=== PATIENT | male | born 1995 | race Caucasian/White ===

== ENCOUNTER 2018-12-10 11:31 | Emergency (ER) | payer MEDICAID | END 2018-12-10 14:00 | disposition left against medical advice (07) | LOC: ER 13:44 | DX: S69.92XA Unspecified injury of left wrist, hand and finger(s), initial encounter (principal); Z53.21 Procedure and treatment not carried out due to patient leaving prior to being seen by health care provider; X58.XXXA Exposure to other specified factors, initial encounter; Y93.89 Activity, other specified; Y92.89 Other specified places as the place of occurrence of the external cause; Y99.8 Other external cause status ==

== ENCOUNTER 2018-12-10 14:39 | Emergency (ER) | payer MEDICAID | END 2018-12-10 16:31 | disposition left against medical advice (07) | LOC: ER 14:39 | DX: S69.90XA Unspecified injury of unspecified wrist, hand and finger(s), initial encounter (principal); Z53.21 Procedure and treatment not carried out due to patient leaving prior to being seen by health care provider; X58.XXXA Exposure to other specified factors, initial encounter; Y93.89 Activity, other specified; Y92.89 Other specified places as the place of occurrence of the external cause; Y99.8 Other external cause status ==

== ENCOUNTER 2018-12-11 01:06 | Emergency (ER) | payer MEDICAID ==
[~2018-12-11] VITALS: Ht 170.2 cm; Wt 78.5 kg
[2018-12-11] MEDS ORDERED: IBUPROFEN 600MG TABLET PO STA (02:49)
[2018-12-11] MEDS ORDERED: BACITRACIN ZINC OINT UDPKT TOP ONE (05:00)
[2018-12-11] MEDS ORDERED: AMOXICILLIN/POTASSIUM CLAVULANATE 875/125MG TAB PO SCH (05:00)
[2018-12-11 05:57] VITALS: BP 137/87
== END 2018-12-11 06:00 | disposition home or self-care (01) ==
LOC: ER 01:06
DX: F12.10 Cannabis abuse, uncomplicated (principal); S62.394A Other fracture of fourth metacarpal bone, right hand, initial encounter for closed fracture; S62.396A Other fracture of fifth metacarpal bone, right hand, initial encounter for closed fracture; S60.222A Contusion of left hand, initial encounter; S61.451A Open bite of right hand, initial encounter; Y04.0XXA Assault by unarmed brawl or fight, initial encounter; Y04.1XXA Assault by human bite, initial encounter; Y93.89 Activity, other specified; Y92.89 Other specified places as the place of occurrence of the external cause
CPT/HCPCS: 29125; 73130; 99283

== ENCOUNTER 2019-03-04 16:19 | Emergency (ER) | payer MEDICAID ==
[~2019-03-04] VITALS: Ht 165.1 cm; Wt 84.0 kg
[2019-03-04 16:22] VITALS: BP 129/72
== END 2019-03-04 19:50 | disposition left against medical advice (07) ==
LOC: ER 16:19
DX: M79.89 Other specified soft tissue disorders (principal); Z53.21 Procedure and treatment not carried out due to patient leaving prior to being seen by health care provider

== ENCOUNTER 2021-06-30 02:09 | Emergency (ER) | payer MEDICAID ==
[~2021-06-30] VITALS: Ht 170.2 cm; Wt 70.0 kg
[2021-06-30 02:17] VITALS: BP 130/85
[2021-06-30] MEDS ORDERED: CLOT15CR27 TP (03:47)
== END 2021-06-30 03:53 ==
LOC: ER 02:09
DX: S63.501A Unspecified sprain of right wrist, initial encounter (principal); B35.3 Tinea pedis; F12.10 Cannabis abuse, uncomplicated; X58.XXXA Exposure to other specified factors, initial encounter; Y93.89 Activity, other specified; Y92.89 Other specified places as the place of occurrence of the external cause; Y99.8 Other external cause status
CPT/HCPCS: 73110; 99283

== ENCOUNTER 2022-01-14 20:22 | Emergency (ER) | payer MEDICAID ==
[~2022-01-14] VITALS: Ht 165.1 cm; Wt 78.4 kg
[~2022-01-14 20:22] MED LIST: CLOT15CR27 TP
[2022-01-14 21:03] VITALS: BP 104/60
== END 2022-01-14 23:30 | disposition left against medical advice (07) ==
LOC: ER 20:22
DX: Z53.21 Procedure and treatment not carried out due to patient leaving prior to being seen by health care provider (principal); Z86.19 Personal history of other infectious and parasitic diseases

== ENCOUNTER 2022-01-17 21:28 | Emergency (ER) | payer MEDICAID ==
[~2022-01-17] VITALS: Ht 182.9 cm; Wt 75.0 kg
[2022-01-17 22:20] LABS: BASOPHILS % 0.5 % (0.0-2.0); EOSINOPHILS % 0.6 % (0.0-5.0); HEMATOCRIT. 39.3 % (42.0-52.0); HEMOGLOBIN. 13.6 g/dL (14.0-18.0); LYMPHOCYTES % 40.6 % (20.0-50.0); MEAN CORPUSCULAR HEMOGLOBIN 31.8 pg (28.0-32.0); MEAN CORPUSCULAR VOLUME 91.8 fL (80.0-94.0); MEAN PLATELET VOLUME 6.6 fl (7.4-10.4); NEUTROPHILS % 50.3 % (40.0-76.0); PLATELET 271 x1000/uL (130-400); RED BLOOD CELL COUNT 4.28 mill/uL (4.7-6.1); RED CELL DISTRIBUTION WIDTH 13.9 % (11.6-14.6)
[2022-01-17 22:21] LABS: CHLORIDE 103 mEq/L (98-107)
[2022-01-17 22:26] VITALS: BP 139/70
[2022-01-17 22:30] LABS: ETHANOL BLOOD < 10 mg/dL
[2022-01-17] MEDS ORDERED: SODIUM CHLORIDE 0.9% 1,000 ML IV NR (23:15)
[2022-01-17 23:19] LABS: CREATINE KINASE 136 IU/L (39-308)
[2022-01-18 01:17] LABS: *AMPHETAMINES SCREEN URINE NEGATIVE (NEGATIVE); *BARBITURATES SCREEN URINE NEGATIVE (NEGATIVE); *BENZODIAZEPINES SCREEN URINE NEGATIVE (NEGATIVE); *COCAINE SCREEN URINE NEGATIVE (NEGATIVE); CANNABINOID URINE SCREEN PRESUMTIVE POSITIVE (NEGATIVE); METHADONE URINE SCREEN NEGATIVE (NEGATIVE); OPIATES URINE SCREEN NEGATIVE (NEGATIVE); PHENCYCLIDINE URINE SCREEN NEGATIVE (NEGATIVE)
[2022-01-18] MEDS ORDERED: NALO4SPR BOTHNSTRLS (04:29)
== END 2022-01-18 05:01 | disposition home or self-care (01) ==
LOC: ER 21:28
DX: T40.711A Poisoning by cannabis, accidental (unintentional), initial encounter (principal); F11.10 Opioid abuse, uncomplicated; Y92.018 Other place in single-family (private) house as the place of occurrence of the external cause
CPT/HCPCS: 36415; 80053; 80305; 80307; 80320; 80329; 82550; 85025; 93005; 99284; Z7610; G0480

== ENCOUNTER 2022-02-02 23:43 | Emergency (ER) | payer MEDICAID ==
[~2022-02-02] VITALS: Ht 170.2 cm; Wt 78.1 kg
[~2022-02-02 23:43] MED LIST changes: +NALO4SPR BOTHNSTRLS
[2022-02-02 23:59] VITALS: BP 115/53
[2022-02-03] MEDS ORDERED: ONDANSETRON HCL 4MG/2ML INJ IM STA (01:52)
[2022-02-03] MEDS ORDERED: KETOROLAC 60MG/2ML VIAL IM STA (01:52)
[2022-02-03 02:31] LABS: CHLORIDE 100 mEq/L (98-107)
[2022-02-03 02:41] LABS: BASOPHILS % 0.6 % (0.0-2.0); EOSINOPHILS % 0.7 % (0.0-5.0); HEMATOCRIT. 37.8 % (42.0-52.0); HEMOGLOBIN. 12.8 g/dL (14.0-18.0); MEAN CORPUSCULAR HEMOGLOBIN 30.6 pg (28.0-32.0); MEAN CORPUSCULAR VOLUME 90.6 fL (80.0-94.0); MEAN PLATELET VOLUME 6.4 fl (7.4-10.4); MONOCYTES % 9.9 % (2.0-8.0); NEUTROPHILS % 51.8 % (40.0-76.0); PLATELET 391 x1000/uL (130-400); RED BLOOD CELL COUNT 4.17 mill/uL (4.7-6.1); RED CELL DISTRIBUTION WIDTH 13.7 % (11.6-14.6)
[2022-02-03 03:34] LABS: CLARITY URINE CLEAR (CLEAR); COLOR URINE DARK YELLOW (YELLOW); KETONES URINE NEGATIVE (NEGATIVE); LEUKOCYTE ESTERASE URINE NEGATIVE (NEGATIVE); NITRITE URINE NEGATIVE (NEGATIVE); OCCULT BLOOD URINE NEGATIVE (NEGATIVE); PH URINE 5.5 (4.5-8.0); PROTEIN URINE 2+ (NEGATIVE); SPECIFIC GRAVITY URINE 1.039 (1.005-1.030)
[2022-02-03] MEDS ORDERED: NAPR-681 PO (03:48)
[2022-02-03] MEDS ORDERED: ONDA4TAB50 PO (03:48)
[2022-02-03 03:52] LABS: *AMPHETAMINES SCREEN URINE NEGATIVE (NEGATIVE); *BARBITURATES SCREEN URINE NEGATIVE (NEGATIVE); *BENZODIAZEPINES SCREEN URINE NEGATIVE (NEGATIVE); *COCAINE SCREEN URINE NEGATIVE (NEGATIVE); CANNABINOID URINE SCREEN PRESUMTIVE POSITIVE (NEGATIVE); METHADONE URINE SCREEN NEGATIVE (NEGATIVE); OPIATES URINE SCREEN NEGATIVE (NEGATIVE); PHENCYCLIDINE URINE SCREEN NEGATIVE (NEGATIVE)
== END 2022-02-03 04:00 | disposition home or self-care (01) ==
LOC: ER 23:43
DX: R10.9 Unspecified abdominal pain (principal); K29.00 Acute gastritis without bleeding; M94.0 Chondrocostal junction syndrome [Tietze]; R07.9 Chest pain, unspecified
CPT/HCPCS: 36415; 71045; 80053; 80305; 80320; 81003; 83690; 85025; 93005; 96372; 99285; J1885; J2405; G0480

== ENCOUNTER 2022-06-07 17:03 | Emergency (ER) | payer OTHER, MEDICAID ==
[~2022-06-07] VITALS: Ht 170.2 cm; Wt 50.0 kg
[~2022-06-07 17:03] MED LIST changes: +NAPR-681 PO; +ONDA4TAB50 PO
[2022-06-07 17:15] VITALS: BP 117/74
[2022-06-07] MEDS ORDERED: ACETAMINOPHEN 325MG TABLET PO ONE (17:30)
== END 2022-06-07 18:14 ==
LOC: ER 17:03
DX: M25.561 Pain in right knee (principal); M25.531 Pain in right wrist; M25.511 Pain in right shoulder; Z02.89 Encounter for other administrative examinations; F11.10 Opioid abuse, uncomplicated
CPT/HCPCS: 73030; 73110; 99284